=== PATIENT | female | born 1995 | race Caucasian/White ===

== ENCOUNTER 2018-11-21 14:06 | Emergency (ER) | payer MEDICAID ==
[~2018-11-21] VITALS: Ht 172.7 cm; Wt 59.0 kg
[2018-11-21 14:09] VITALS: BP 130/97
--- NOTE | 2018-11-21 14:09 | NUR ---
PT BIB [facility] AND PLACED IN CHAIR B.
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
--- NOTE | 2018-11-21 14:40 | NUR ---
PT TAKEN TO CT VIA W/C ACCOMPANIED BY [facility] .
[2018-11-21 16:18] VITALS: BP 122/95
--- NOTE | 2018-11-21 16:18 | NUR ---
PATIENT EXAMINED BY DR. JAMES AND PATIENT MEDICALLY CLEARED AND RELEASED IN CUSTODY IN STABLE CONDITION. ORIGINAL PRE-BOOK FORM AND COPY GIVEN TO OFFICER ÁNGEL FROM [facility]. PT DISCHARGE INSTRUCTIONS GIVEN ALONG WITH RX FOR MOTRIN. ALL QUESTIONS ANSWERED PRIOR TO DISCHARGED. PT DISCHARGED INTO CUSTODY OF [facility].
== END 2018-11-21 16:18 ==
LOC: MED 14:06
DX: S00.81XA Abrasion of other part of head, initial encounter (principal); M79.601 Pain in right arm; F41.9 Anxiety disorder, unspecified; Z02.89 Encounter for other administrative examinations; Y04.2XXA Assault by strike against or bumped into by another person, initial encounter; Y93.89 Activity, other specified; Y92.89 Other specified places as the place of occurrence of the external cause; Y99.8 Other external cause status
CPT/HCPCS: 70450; 70486; 73080; 73090; 99284